=== PATIENT | male | born 2000 | race Caucasian/White ===

== ENCOUNTER 2019-09-18 18:32 | Emergency (ER) | payer OTHER ==
[~2019-09-18] VITALS: Ht 167.6 cm; Wt 84.1 kg
[2019-09-18 18:33] VITALS: BP 159/83
[2019-09-18] MEDS ORDERED: HYDR25OIN TOP (19:12)
[2019-09-18] MEDS ORDERED: ABRE10CR TOP (19:12)
== END 2019-09-18 19:17 | disposition home or self-care (01) ==
LOC: M ED 18:32
DX: R21 Rash and other nonspecific skin eruption (principal); J02.9 Acute pharyngitis, unspecified

== ENCOUNTER 2019-12-02 07:44 | Emergency (ER) | payer OTHER ==
[~2019-12-02] VITALS: Ht 167.6 cm; Wt 86.4 kg
[~2019-12-02 07:44] MED LIST: ABRE10CR TOP; HYDR25OIN TOP
[2019-12-02] MEDS ORDERED: AMPH1CAP9 (07:50)
[2019-12-02] MEDS ORDERED: MUPI2OI TOP (08:56)
[2019-12-02] MEDS ORDERED: CLAR10CA3 PO (08:56)
[2019-12-02] MEDS ORDERED: ANUS2.5C2 TOP (08:56)
[2019-12-02 09:21] VITALS: BP 150/67
== END 2019-12-02 09:25 | disposition home or self-care (01) ==
LOC: M ED 07:44
DX: L01.03 Bullous impetigo (principal); L29.0 Pruritus ani; Z79.899 Other long term (current) drug therapy